=== PATIENT | female | born 1955 ===

== ENCOUNTER 2023-02-20 07:27 | Outpatient (CLI) | payer MEDICARE, OTHER ==
[2023-02-20 07:45] LABS: BASOPHILS % (AUTO) 0.9 %; EOSINOPHILS # (AUTO) 0.2 10^3/uL (0.0-0.7); EOSINOPHILS % (AUTO) 4.4 %; HCT - HEMATOCRIT 39.7 % (37.0-47.0); LYMPHOCYTES # (AUTO) 2.3 10^3/uL (1.5-3.5); LYMPHOCYTES % (AUTO) 50.1 %; MEAN CORPUSCULAR HEMOGLOBIN 32.3 pg (27.0-31.0); MEAN CORPUSCULAR HGB CONC 32.7 g/dL (32.0-36.0); MEAN CORPUSCULAR VOLUME 98.8 fL (81.0-99.0); MEAN PLATELET VOLUME 10.8 fL (7.9-10.8); MONOCYTES # (AUTO) 0.3 10^3/uL (0.0-1.0); MONOCYTES % (AUTO) 7.5 %; NEUTROPHILS # (AUTO) 1.7 10^3/uL (1.5-6.6); NEUTROPHILS % (AUTO) 36.9 %; PLT - PLATELET COUNT 148 10^3/uL (130-450); RED BLOOD COUNT 4.02 10^6/uL (4.20-5.40); RED CELL DISTRIBUTION WIDTH 12.2 % (12.0-15.0); WHITE BLOOD COUNT 4.5 x10^3/uL (4.8-10.8)
[2023-02-20 08:58] LABS: BILIRUBIN,URINE NEGATIVE (NEGATIVE); GLUCOSE, URINE (UA) NEGATIVE (NEGATIVE); KETONES,URINE (UA) NEGATIVE (NEGATIVE); LEUKOCYTE ESTERASE, URINE NEGATIVE (NEGATIVE); NITRITE,URINE NEGATIVE (NEGATIVE); OCCULT BLOOD,URINE NEGATIVE (NEGATIVE); PROTEIN,URINE NEGATIVE (NEGATIVE); UROBILINOGEN,URINE 0.2 (NORMAL) E.U./dL (NORMAL)
[2023-02-20 09:04] LABS: BACTERIA,URINE None Seen /HPF (None Seen); CLARITY,URINE CLEAR (CLEAR); RBC,URINE 0-5 /HPF (0-5); SQUAMOUS EPITHELIAL CELL,UR RARE Squamous (<= Few); WBC,URINE 0-3 /HPF (0-5)
== END 2023-02-20 07:28 | disposition home or self-care (01) ==
LOC: LAB 07:27
PROVIDERS: ATTEND Nurse Practitioner
DX: R10.9 Unspecified abdominal pain (principal)
CPT/HCPCS: 36415; 81001; 85025; 87086

== ENCOUNTER 2023-02-20 07:43 | Outpatient (CLI) | payer MEDICARE, OTHER ==
--- NOTE | 2023-02-20 09:26 | CT Report ---
PROCEDURE: ABDOMEN/PELVIS WO INDICATIONS: RIGHT FLANK PAIN TECHNIQUE: A CT scan of the abdomen and pelvis was performed without the use of intravenous contrast. Images we re recorded and evaluated at appropriate window settings. Reformats: coronal and sagittal. For radiat ion dose reduction, the following was used: automated exposure control, adjustment of mA and/or kV ac cording to patient size. COMPARISON: Outside CT abdomen pelvis without contrast, images but no report is available at time of dictation. FINDINGS: Image quality: Excellent. Lung bases and heart: Unremarkable. Liver: No solid mass. Gallbladder and biliary tree: No radiopaque stones or wall thickening. No biliary dilation. Spleen: No splenomegaly. Pancreas: No pancreatic ductal dilation. Adrenals: No adrenal nodule. Kidneys and ureters: No hydronephrosis. Stable right exophytic simple cyst in the interpolar region a nd left superior pole and inferior pole exophytic simple cysts. Nonobstructive 4 mm left lower pole c alculus. No hydroureteronephrosis. No renal cystic lesion which requires follow up. No solid mass. Bowel and peritoneum: No bowel distension. No pathologic free fluid. Normal appendix. Lymph nodes: No central or retroperitoneal adenopathy. Vessels: No infrarenal aortic aneurysm. Aortobiiliac atherosclerotic calcifications. PELVIS Reproductive organs: Unremarkable. Bladder: No wall thickness, accounting for underdistention. Pelvic lymph nodes: No pelvic adenopathy by size criteria. Bones: No acute or suspicious osseous abnormality. Degenerative changes of the lumbar spine. Other: No significant ventral or inguinal hernia. IMPRESSION: Nonobstructive 4 mm left lower pole calculus. No hydronephrosis. No acute findings on the right to explain patient's symptoms. Reviewed by: Rosa Catherine MD on 02/20/2023 9:25 AM RUST Approved by: Rosa Catherine MD on 02/20/2023 9:25 AM PST Station ID: [id number]
== END 2023-02-20 07:44 | disposition home or self-care (01) ==
LOC: DI 07:43
PROVIDERS: ATTEND Nurse Practitioner
DX: N28.1 Cyst of kidney, acquired (principal); R10.9 Unspecified abdominal pain; N20.0 Calculus of kidney
CPT/HCPCS: 36415; 81001; 85025; 87086

== ENCOUNTER 2023-05-05 09:26 | Outpatient (CLI) | payer MEDICARE, OTHER ==
[2023-05-05 12:42] LABS: ALBUMIN 4.4 g/dL (3.2-5.5); ALBUMIN/GLOBULIN RATIO 1.8 (1.0-2.2); ALKALINE PHOSPHATASE 45 IU/L (42-121); ALT ALANINE AMINOTRANSFERASE 37 IU/L (10-60); AST ASPARTATE AMINOTRANSFERASE 41 IU/L (10-42); BILIRUBIN,TOTAL 0.7 mg/dL (0.2-1.0); BUN - BLOOD UREA NITROGEN 16 mg/dL (6-20); CALCIUM 9.6 mg/dL (8.5-10.3); CARBON DIOXIDE - CO2 30 mmol/L (21-32); CHLORIDE 106 mmol/L (101-111); CHOL/HDL RATIO 3.6 (<4.4); CHOLESTEROL 197 mg/dL; GFR - MDRD 56 (>89); GLUCOSE 111 mg/dL (74-104); HDL CHOLESTEROL 55 mg/dL; LDL CHOLESTEROL,CALCULATED 112 mg/dL; SODIUM 140 mmol/L (135-145); TOTAL PROTEIN 6.9 g/dL (6.4-8.9); TRIGLYCERIDES 149 mg/dL (48-352); VLDL CHOLESTEROL 30 mg/dL
== END 2023-05-05 09:27 | disposition home or self-care (01) ==
LOC: LAB.N 09:26
PROVIDERS: ATTEND Nurse Practitioner Family
DX: E78.5 Hyperlipidemia, unspecified (principal); E03.9 Hypothyroidism, unspecified; R74.8 Abnormal levels of other serum enzymes
CPT/HCPCS: 36415; 80053; 80061; 83721; 84443

== ENCOUNTER 2023-06-24 09:29 | Outpatient (CLI) | payer MEDICARE, OTHER ==
[2023-06-24 09:55] LABS: CALCIUM 10.1 mg/dL (8.5-10.3); CREATININE 0.8 mg/dL (0.6-1.3); POTASSIUM 4.6 mmol/L (3.5-4.5)
== END 2023-06-24 09:30 | disposition home or self-care (01) ==
LOC: LAB 09:29
PROVIDERS: ATTEND Nurse Practitioner Family
DX: R73.03 Prediabetes (principal); I10 Essential (primary) hypertension; E78.5 Hyperlipidemia, unspecified
CPT/HCPCS: 36415; 80048

== ENCOUNTER 2023-10-14 11:46 | Outpatient (CLI) | payer MEDICARE, OTHER ==
[2023-10-14 13:50] LABS: BILIRUBIN,URINE NEGATIVE (NEGATIVE); GLUCOSE, URINE (UA) NEGATIVE (NEGATIVE); KETONES,URINE (UA) NEGATIVE (NEGATIVE); LEUKOCYTE ESTERASE, URINE TRACE (NEGATIVE); NITRITE,URINE NEGATIVE (NEGATIVE); OCCULT BLOOD,URINE NEGATIVE (NEGATIVE); PH,URINE 6.5 PH (5.0-7.5); PROTEIN,URINE NEGATIVE (NEGATIVE); UROBILINOGEN,URINE 0.2 (NORMAL) E.U./dL (NORMAL)
[2023-10-14 13:53] LABS: CLARITY,URINE CLEAR (CLEAR)
[2023-10-14 14:11] LABS: BACTERIA,URINE None Seen /HPF (None Seen); RBC,URINE None Seen /HPF (0-5); SQUAMOUS EPITHELIAL CELL,UR FEW Squamous (<= Few); WBC,URINE 0-3 /HPF (0-5)
== END 2023-10-14 11:47 | disposition home or self-care (01) ==
LOC: LAB 11:46
PROVIDERS: ATTEND Physician Assistant Medical
DX: N20.0 Calculus of kidney (principal)
CPT/HCPCS: 81001; 81003; 87086

== ENCOUNTER 2023-10-18 16:17 | Outpatient (CLI) | payer MEDICARE, OTHER ==
--- NOTE | 2023-10-18 23:54 | XRAY Report ---
PROCEDURE: Lumbar Spine 2-3V INDICATIONS: LOWER BACK PAIN,CHRONIC TECHNIQUE: 2 views of the lumbar spine were acquired. COMPARISON: CT abdomen and pelvis dated 04/23/2021. FINDINGS: Surgical change: None. Bones: 5 [id number] vertebrae are present. There is normal bony alignment. Diffuse osteopenia. No acute vertebral body compression fractures. No suspicious bony lesions. Mild multilevel lumbar sp ondylitic changes and associated facet arthropathy. Findings are most pronounced in the mid and lower lumbar spine. Soft tissues: Overlying bowel gas pattern is normal. No suspicious soft tissue calcifications. IMPRESSION: Lumbar spine without acute osseous abnormalities or malalignment. Stable appearance of mild mid and l ower lumbar spondylosis. Reviewed by: Donaldo Donis MD on 10/18/2023 11:53 PM PDT Approved by: Donaldo Donis MD on 10/18/2023 11:53 PM PDT Station ID: [id number]
--- NOTE | 2023-10-19 10:03 | XRAY Report ---
PROCEDURE: Thoracic Spine 2V INDICATIONS: LOWER BACK PAIN,CHRONIC TECHNIQUE: 2 views of the thoracic spine were acquired. COMPARISON: None. FINDINGS: Bones: No fractures or dislocations. No suspicious bony lesions. 12 pairs of ribs are noted, and a ppear intact where visualized. Mild multilevel degenerative changes of the thoracic spine with inter vertebral disc height loss, degenerative changes and spurring. Soft tissues: No paravertebral stripe thickening. IMPRESSION: Mild degenerative changes of the thoracic spine. No acute osseous abnormalities. Reviewed by: Allen Obrien MD on 10/19/2023 10:01 AM PDT Approved by: Allen Obrien MD on 10/19/2023 10:01 AM PDT Station ID: [id number]
== END 2023-10-18 16:18 | disposition home or self-care (01) ==
LOC: DI 16:17
PROVIDERS: ATTEND Nurse Practitioner Family
DX: R10.9 Unspecified abdominal pain (principal); M47.814 Spondylosis without myelopathy or radiculopathy, thoracic region; M47.816 Spondylosis without myelopathy or radiculopathy, lumbar region